=== PATIENT | female | born 1995 | race Caucasian/White ===

== ENCOUNTER 2017-07-14 16:12 | Emergency (ER) | payer OTHER ==
--- NOTE | 2017-07-14 16:25 | PDOC ---
Rapid Medical Evaluation Time Seen by Provider: 07/14/17 16:25 Medical Evaluation: Allergies Allergy/AdvReac Type Severity Reaction Status Date / Time No Known Allergies Allergy Verified 07/14/17 16:24 07/14/17 16:25 The patient presents with a chief complaint of: body pain, dyspnea I have performed a brief in-person evaluation of this patient. Pertinent physical exam findings: vss, uncomfortable I have ordered the following: ekg, labs The patient will proceed to the ED for further evaluation. 07/14/17 16:26
[2017-07-14 16:29] VITALS: TEMP 97.4; BMI 22.3
[2017-07-14] MEDS ORDERED: ALPRAZolam 0.25 MG TABLET PO ONE (17:25)
--- NOTE | 2017-07-14 17:26 | PDOC ---
History of Present Illness - General History Source: Patient Exam Limitations: No Limitations - History of Present Illness Initial Comments: 07/14/17 18:01 The patient is a 22 year old female with significant PMH of anxiety(previously on Klonopin) who presents to the emergency department complaining of chest pain beginning since this morning. The patient describes the chest pain as sharp in nature in the setting of anxiety. The patient also reports associated diffuse body cramps with her chest pain. The patient reports experiencing chest pain in the past with her anxiety but notes this episode was more concerning to her, prompting her visit. The patient notes she has not been treated for her anxiety in over a year. The patient denies suicidal and homicidal ideations. Denies self mutilating thoughts. The patient denies shortness of breath, headache, and dizziness. Denies fevers, chills, nausea, vomit, diarrhea, and constipation. Denies dysuria, frequency, urgency, and hematuria. Allergies: NKA Past surgical history: Social history: Current everyday cigarette smoker. No reported alcohol or drug use. <Fay Henson - Last Filed: 07/14/17 18:01> <Alysa Armendariz - Last Filed: 07/16/17 11:29> - General Chief Complaint: Psychiatric Stated Complaint: CHEST PAIN Time Seen by Provider: 07/14/17 16:25 Past History <Fay Henson - Last Filed: 07/14/17 18:01> - Past Medical History Asthma: Yes Cancer: No Cardiac Disorders: No COPD: No Diabetes: No HTN: No Psychiatric Problems: Yes (anxiety) Seizures: No Thyroid Disease: No - Immunization History Immunization Up to Date: Yes - Suicide/Smoking/Psychosocial Hx Smoking History: Current every day smoker Have you smoked in the past 12 months: No Number of Cigarettes Smoked Daily: 2 Information on smoking cessation initiated: Yes 'Breaking Loose' booklet given: 07/14/17 Hx Alcohol Use: No Drug/Substance Use Hx: No Substance Use Type: None Hx Substance Use Treatment: No <Alysa Armendariz - Last Filed: 07/16/17 11:29> - Past Medical History Allergies/Adverse Reactions: Allergies Allergy/AdvReac Type Severity Reaction Status Date / Time No Known Allergies Allergy Verified 07/14/17 16:24 Home Medications: Ambulatory Orders NK [No Known Home Medication] 06/16/15 Review of Systems - Review of Systems Able to Perform ROS?: Yes Comments:: 07/14/17 18:02 GENERAL/CONSTITUTIONAL: No fever or chills. No weakness. HEAD, EYES, EARS, NOSE AND THROAT: No change in vision. No ear pain or discharge. No sore throat. CARDIOVASCULAR: +chest pain. No shortness of breath. RESPIRATORY: No cough, wheezing, or hemoptysis. GASTROINTESTINAL: No nausea, vomiting, diarrhea or constipation. GENITOURINARY: No dysuria, frequency, or change in urination. MUSCULOSKELETAL: No joint or muscle swelling or pain. No neck or back pain. SKIN: No rash NEUROLOGIC: No headache, vertigo, loss of consciousness, or change in strength/ sensation. ENDOCRINE: No increased thirst. No abnormal weight change. HEMATOLOGIC/LYMPHATIC: No anemia, easy bleeding, or history of blood clots. ALLERGIC/IMMUNOLOGIC: No hives or skin allergy. <Fay Henson - Last Filed: 07/14/17 18:01> *Physical Exam - Vital Signs Last Vital Signs Temp Pulse Resp BP Pulse Ox 97.4 F L 68 18 128/45 100 07/14/17 16:24 07/14/17 16:24 07/14/17 16:24 07/14/17 16:24 07/14/17 16:24 - Physical Exam Comments: 07/14/17 18:03 GENERAL: +Fidgeting. Awake, alert, and fully oriented. HEAD: No signs of trauma EYES: PERRLA, EOMI, sclera anicteric, conjunctiva clear ENT: Auricles normal inspection, hearing grossly normal, nares patent, oropharynx clear without exudates. Moist mucosa NECK: Normal ROM, supple, no lymphadenopathy, JVD, or masses LUNGS: Breath sounds equal, clear to auscultation bilaterally. No wheezes, and no crackles HEART: Regular rate and rhythm, normal S1 and S2, no murmurs, rubs or gallops ABDOMEN: Soft, nontender, normoactive bowel sounds. No guarding, no rebound. No masses EXTREMITIES: Normal range of motion, no edema. No clubbing or cyanosis. No cords, erythema, or tenderness NEUROLOGICAL: Cranial nerves II through XII grossly intact. Normal speech, normal gait SKIN: Warm, Dry, normal turgor, no rashes or lesions noted. <Fay Henson - Last Filed: 07/14/17 18:01> - Vital Signs Last Vital Signs Temp Pulse Resp BP Pulse Ox 97.4 F L 68 18 128/45 100 07/14/17 16:24 07/14/17 16:24 07/14/17 16:24 07/14/17 16:24 07/14/17 16:24 <Alysa Armendariz - Last Filed: 07/16/17 11:29> ED Treatment Course - LABORATORY CBC & Chemistry Diagram: 07/14/17 17:08 07/14/17 17:16 - ADDITIONAL ORDERS Additional order review: 07/14/17 17:08 RBC 4.44 MCV 92.3 MCHC 34.6 RDW 13.7 MPV 8.7 Neutrophils % 77.0 Lymphocytes % 16.7 D Monocytes % 5.2 Eosinophils % 0.6 Basophils % 0.5 - Medications Given in the ED: ED Medications Discontinued Medications Generic Name Dose Route Start Last Admin Trade Name Freq PRN Reason Stop Dose Admin Alprazolam 0.25 mg 07/14/17 17:25 07/14/17 17:37 Xanax - PO 07/14/17 17:26 0.25 mg ONCE ONE Administration <Fay Henson - Last Filed: 07/14/17 18:01> - LABORATORY CBC & Chemistry Diagram: 07/14/17 17:08 07/14/17 17:16 <Alysa Armendariz - Last Filed: 07/16/17 11:29> Medical Decision Making - Medical Decision Making 07/14/17 18:31 Ms Yañez Presents emergency Department today with a complaint of chest pain. Patient states her symptoms began this morning. Patient states that began this morning. Patient states she awakens every morning with anxiety. Previously she was being seen by a psychiatrist and therapist. She discontinued both towards the end of 2017. Patient states despite the fact that she is anxious every morning, she came to the emergency department today because her symptoms are much worse today. She reports midsternal chest pain, described as squeezing. No shortness of breath. Patient has no history of exogenous estrogen use, recent travel, lower extremity edema, no diagnoses of cancer, no recent surgery no prolonged immobilization Patient has had similar symptoms to the one she currently has in the past. On examination: Patient appears anxious, fidgety. Heart is regular Lungs are clear to auscultation No abdominal tenderness to palpation, Patient is low risk Wells, Percocet negative. I doubt PE. I doubt coronary artery disease. EKG is normal sinus rhythm, rate of 62 bpm, axis normal, intervals are normal, no ST elevation or depression Will do chest x-ray to eval for pneumothorax, pleural effusion Likely related to anxiety Will give Xanax Anticipate discharge Follow up with PMD Clinical Impression: Anxiey, initial presentation 07/14/17 18:36 Laboratory Tests 07/14/17 07/14/17 17:08 17:08 WBC 8.9 Hgb 14.2 D Hct 40.9 Plt Count 340 D Urine HCG, Qual Negative Pt states she feels much better Pt asked to follow up with her psychiatrist and therapist Clinical impression: anxiety, initial presentation <Alysa Armendariz - Last Filed: 07/16/17 11:29> *DC/Admit/Observation/Transfer - Attestations Scribe Attestion: 07/14/17 18:03 Documentation prepared by Fay Henson, acting as biomedical field service engineer for Alysa Armendariz MD. <Fay Henson - Last Filed: 07/14/17 18:01> - Discharge Dispostion Admit: No <Alysa Armendariz - Last Filed: 07/16/17 11:29> Diagnosis at time of Disposition: Anxiety attack - Discharge Dispostion Disposition: HOME Condition at time of disposition: Stable - Referrals Referrals: Monroe Nails MD [Staff Physician] - - Patient Instructions Printed Discharge Instructions: DI for Anxiety -- Adult Additional Instructions: Ms. Yañez Thank you for coming in to the ER Please be sure to follow up with a psychiatrist and a therapist Please return to the ER for any other concerns or complaints If you ever feel unsafe - like you want to harm yourself or any one else, please come to the ER immediately
[2017-07-14 17:30] LABS: BASO % 0.5 % (0-2.0); EOS % 0.6 % (0-4.5); HEMATOCRIT 40.9 % (32.4-45.2); HEMOGLOBIN 14.2 GM/dL (10.7-15.3); LYMPH % 16.7 % (8-40); MCH 31.9 pg (25.7-33.7); MCHC 34.6 g/dl (32.0-36.0); MEAN CELL VOLUME 92.3 fl (80-96); MEAN PLT VOLUME 8.7 fl (7.5-11.1); MONO % 5.2 % (3.8-10.2); PLATELET COUNT 340 K/MM3 (134-434); RBC 4.44 M/mm3 (3.60-5.2); RDW 13.7 % (11.6-15.6); WHITE BLOOD COUNT 8.9 K/mm3 (4.0-10.0)
[2017-07-14] MEDS ORDERED: ALPRAZolam 0.25 MG TABLET ONE (17:35)
[2017-07-14 18:06] LABS: ALBUMIN 4.3 g/dl (3.4-5.0); ANION GAP 10 (8-16); BILIRUBIN,TOTAL 0.5 mg/dL (0.2-1.0); BLOOD UREA NITROGEN 7 mg/dL (7-18); CALCIUM 9.4 mg/dL (8.5-10.1); CHLORIDE 104 mmol/L (98-107); CO2 28 mmol/L (21-32); CREATININE 0.6 mg/dL (0.55-1.02); GLUCOSE,RANDOM 89 mg/dL (74-106); POTASSIUM 3.8 mmol/L (3.5-5.1); SGOT/AST 12 U/L (15-37); SGPT/ALT < 6 U/L (12-78); SODIUM 142 mmol/L (136-145)
[2017-07-14 18:07] LABS: ALK PHOS 95 U/L (45-117)
[2017-07-14 18:46] VITALS: BP 122/61; PULSE 70
--- NOTE | 2017-07-15 10:10 | EKG ---
Test Reason : Blood Pressure : / mmHG Vent. Rate : 062 BPM Atrial Rate : 062 BPM P-R Int : 132 ms QRS Dur : 074 ms QT Int : 406 ms P-R-T Axes : 038 051 041 degrees QTc Int : 412 ms NORMAL SINUS RHYTHM NORMAL ECG WHEN COMPARED WITH ECG OF 16-JUN-2015 22:33, NO SIGNIFICANT CHANGE WAS FOUND Confirmed by Rachid Schaffer MD ([id number]) on 07/15/2017 10:10:13 AM Referred By: Confirmed By:Rachid Schaffer MD
== END 2017-07-14 19:23 | disposition home or self-care (01) ==
LOC: JER 16:12
DX: F41.0 Panic disorder [episodic paroxysmal anxiety] (principal); F41.9 Anxiety disorder, unspecified; F17.210 Nicotine dependence, cigarettes, uncomplicated; Z87.09 Personal history of other diseases of the respiratory system
CPT/HCPCS: 36415; 80053; 84703; 85025; 93005; 93010; 99283-25

== ENCOUNTER 2021-02-04 01:54 | Emergency (ER) | payer OTHER ==
[2021-02-04] MEDS ORDERED: ALPRAZolam 0.25 MG TABLET PO ONE (02:53)
[2021-02-04] MEDS ORDERED: ONDANSETRON *ODT* 4 MG TABLET SL ONE (02:54)
[2021-02-04] MEDS ORDERED: ONDANSETRON *ODT* 4 MG TABLET ONE (02:58)
[2021-02-04 03:09] VITALS: BP 131/80; PULSE 77; TEMP 98.8; BMI 26.9
[2021-02-04] MEDS ORDERED: ALPRAZolam 0.25 MG TABLET ONE (03:13)
== END 2021-02-04 05:05 | disposition home or self-care (01) ==
LOC: JER 01:54
DX: R09.81 Nasal congestion (principal)
CPT/HCPCS: 71046-TC-FY; 87804; 87807; 99284-25; C9803; Q0162; U0003; U0005

== ENCOUNTER 2021-08-31 22:28 | Emergency (ER) | payer OTHER ==
[~2021-08-31 22:28] MED LIST: LIDOCAINE PATCH REMOVAL MC SCH
[2021-08-31 22:41] VITALS: BP 129/84; TEMP 98; BMI 25.7
[2021-08-31] MEDS ORDERED: ACETAMINOPHEN 650 MG/20.3 ML ORAL SOLUTION (CUPS) PO ONE (23:19)
[2021-08-31] MEDS ORDERED: LIDOCAINE 5% TOPICAL PATCH TP ONE (23:19)
[2021-08-31] MEDS ORDERED: LIDOCAINE 5% TOPICAL PATCH ONE (23:37)
[2021-08-31] MEDS ORDERED: KETOROLAC TROMETHAMINE 15 MG/ML VIAL IM ONE (23:50)
[2021-09-01] MEDS ORDERED: KETOROLAC TROMETHAMINE 15 MG/ML VIAL ONE (00:02)
[2021-09-01] MEDS ORDERED: CYCLOBENZAPRINE HCL 10 MG TABLET (FP) ONE (00:03)
[2021-09-01] MEDS ORDERED: diazePAM 5 MG TABLET PO ONE (00:15)
[2021-09-01] MEDS ORDERED: diazePAM 5 MG TABLET ONE (00:20)
[2021-09-01 00:41] VITALS: PULSE 69
[2021-09-01] MEDS ORDERED: CYCLOBENZAPRINE HCL 5 MG TABLET PO ONE ×2 (23:50)
== END 2021-09-01 00:43 | disposition home or self-care (01) ==
LOC: JER 22:28
PROC: 3E0233Z Introduction of Anti-inflammatory into Muscle, Percutaneous Approach (ICD-10-PCS; principal; 2021-08-31)
DX: M54.2 Cervicalgia (principal); V49.50XA Passenger injured in collision with unspecified motor vehicles in traffic accident, initial encounter
CPT/HCPCS: 84703; 99284-25

== ENCOUNTER 2021-09-26 08:09 | Emergency (ER) | payer OTHER ==
[2021-09-26 08:16] VITALS: BP 139/78; PULSE 62; TEMP 97.9; BMI 27.9
[2021-09-26] MEDS ORDERED: FAMOTIDINE 20 MG/50 ML IVPB 20 MG/50 ML MG IVPB ONE ×2 (09:16→09:49)
[2021-09-26] MEDS ORDERED: SODIUM CHLORIDE 1,000 ML IV STA (09:16)
[2021-09-26] MEDS ORDERED: ONDANSETRON 4 MG/2 ML VIAL IVPUSH ONE (09:17)
[2021-09-26] MEDS ORDERED: ONDANSETRON 4 MG/2 ML VIAL ONE (09:49)
[2021-09-26 10:08] LABS: BASO % 0.3 % (0-2.0); EOS % 0.4 % (0-4.5); HEMATOCRIT 41.1 % (32.4-45.2); HEMOGLOBIN 13.7 GM/dL (10.7-15.3); LYMPH % 8.8 % (8-40); MCH 29.9 pg (25.7-33.7); MCHC 33.4 g/dl (32.0-36.0); MEAN CELL VOLUME 89.6 fl (80-96); MEAN PLT VOLUME 7.8 fl (7.5-11.1); MONO % 3.5 % (3.8-10.2); PLATELET COUNT 408 10^3/uL (134-434); RBC 4.59 M/mm3 (3.60-5.2); RDW 13.1 % (11.6-15.6); WHITE BLOOD COUNT 10.2 K/mm3 (4.0-10.0)
[2021-09-26 11:19] LABS: ALBUMIN 4.3 g/dl (3.4-5.0); BLOOD UREA NITROGEN 11.7 mg/dL (7-18); CALCIUM 9.7 mg/dL (8.5-10.1)
[2021-09-26 11:20] LABS: MAGNESIUM 2.2 mg/dL (1.8-2.4)
[2021-09-26 11:22] LABS: CREATININE 0.8 mg/dL (0.55-1.3)
[2021-09-26 11:23] LABS: BILIRUBIN,TOTAL 0.2 mg/dL (0.2-1)
== END 2021-09-26 11:41 | disposition home or self-care (01) ==
LOC: JER 08:09
PROC: 3E033GC Introduction of Other Therapeutic Substance into Peripheral Vein, Percutaneous Approach (ICD-10-PCS; principal; 2021-09-26)
DX: K52.9 Noninfective gastroenteritis and colitis, unspecified (principal)
CPT/HCPCS: 36415; 80053; 83690; 83735; 85025; 93005; 93010; 99284-25

== ENCOUNTER 2023-11-14 08:35 | Emergency (ER) | payer OTHER ==
[2023-11-14 08:46] VITALS: BP 153/79; PULSE 80; RESP 18; TEMP 97.6; BMI 28.3
[2023-11-14] MEDS ORDERED: IBUPROFEN 600 MG TABLET (FP) PO ONE (09:40)
[2023-11-14] MEDS: IBUPROFEN 600 MG TABLET (FP) PO ONE (09:41)
== END 2023-11-14 10:05 | disposition home or self-care (01) ==
LOC: JERFT 08:35
DX: S93.401A Sprain of unspecified ligament of right ankle, initial encounter (principal); W01.0XXA Fall on same level from slipping, tripping and stumbling without subsequent striking against object, initial encounter; X50.1XXA Overexertion from prolonged static or awkward postures, initial encounter
CPT/HCPCS: 73610-TC-RT-FY; 73630-TC-RT-FY; 99283-25